=== PATIENT | female | born 2000 | race Caucasian/White ===

== ENCOUNTER 2021-02-26 21:38 | Emergency (ER) | payer OTHER ==
[2021-02-26 21:58] VITALS: BP 118/74; PULSE 100; TEMP 98.9; BMI 38.9
[2021-02-26] MEDS ORDERED: DIPHTH,PERTUSS(ACELL),TET 0.5 ML DISP.SYRIN IM ONE ×2 (22:24→22:27)
== END 2021-02-26 22:32 | disposition home or self-care (01) ==
LOC: FER 21:38
PROC: 0JQ10ZZ Repair Face Subcutaneous Tissue and Fascia, Open Approach (ICD-10-PCS; principal; 2021-02-26)
PROC: 3E0234Z Introduction of Serum, Toxoid and Vaccine into Muscle, Percutaneous Approach (ICD-10-PCS; 2021-02-26)
DX: S01.419A Laceration without foreign body of unspecified cheek and temporomandibular area, initial encounter (principal)
CPT/HCPCS: 12011-25; 90471; 90715; 99283-25

== ENCOUNTER 2024-04-02 19:40 | Emergency (ER) | payer OTHER ==
[2024-04-02 20:00] VITALS: BP 110/60; PULSE 75; RESP 16; TEMP 98.3; BMI 29.2
[2024-04-02] MEDS: SODIUM CHLORIDE 1,000 ML IV ONE (20:00)
[2024-04-02] MEDS ORDERED: ONDANSETRON 4 MG/2 ML VIAL ONE (20:10)
[2024-04-02] MEDS ORDERED: HALOPERIDOL LACTATE 5 MG/ML ONE (20:10)
[2024-04-02] MEDS: ONDANSETRON 4 MG/2 ML VIAL IVPB ONE (20:15)
[2024-04-02] MEDS: HALOPERIDOL LACTATE 5 MG/ML IM ONE (20:15)
[2024-04-02 20:19] LABS: HEMOGLOBIN 14.3 G/dL (10.7-15.3); MCHC 32.4 g/dl (32.0-36.0); MEAN CELL VOLUME 86.2 fl (80-96); MEAN PLT VOLUME 9.7 fl (7.5-11.1); PLATELET COUNT 259.8 10^3/uL (134-434); RDW 18.3 % (11.6-15.6)
[2024-04-02] MEDS ORDERED: morphine SULFATE 4 MG/ML VIAL ONE (20:38)
[2024-04-02] MEDS ORDERED: PANTOPRAZOLE SODIUM 40 MG VIAL ONE (20:38)
[2024-04-02 20:43] LABS: BILIRUBIN,TOTAL 1.1 mg/dl (0.2-1); CALCIUM 10.5 mg/dl (8.5-10.1); CREATININE 0.6 mg/dl (0.6-1.3); MAGNESIUM 2.1 mg/dL (1.8-2.4); POTASSIUM 3.8 mmol/L (3.5-5.1); TOT PROT 7.9 g/dl (6.4-8.2)
[2024-04-02] MEDS: PANTOPRAZOLE SODIUM 40 MG VIAL IVPUSH ONE (20:43)
[2024-04-02] MEDS: morphine CARPU-JECT 4 MG/1 ML DISP.SYRIN IVPUSH ONE (20:45)
[2024-04-02 20:46] LABS: WHITE BLOOD COUNT 18.5 10^3/uL (4.0-10.8)
== END 2024-04-02 21:55 | disposition left against medical advice (07) ==
LOC: FER 19:40
PROC: 3E033NZ Introduction of Analgesics, Hypnotics, Sedatives into Peripheral Vein, Percutaneous Approach (ICD-10-PCS; principal; 2024-04-02)
PROC: 3E033GC Introduction of Other Therapeutic Substance into Peripheral Vein, Percutaneous Approach (ICD-10-PCS; 2024-04-02)
PROC: 3E033GC Introduction of Other Therapeutic Substance into Peripheral Vein, Percutaneous Approach (ICD-10-PCS; 2024-04-02)
PROC: 3E0337Z Introduction of Electrolytic and Water Balance Substance into Peripheral Vein, Percutaneous Approach (ICD-10-PCS; 2024-04-02)
PROC: 3E023GC Introduction of Other Therapeutic Substance into Muscle, Percutaneous Approach (ICD-10-PCS; 2024-04-02)
DX: R11.2 Nausea with vomiting, unspecified (principal); R10.13 Epigastric pain; F12.188 Cannabis abuse with other cannabis-induced disorder
CPT/HCPCS: 36415; 74177-TC; 80053; 83735; 85027; 96361; 96374; 96375; 99285-25; Q9967